=== PATIENT | female | born 1945 | race Caucasian/White ===

== ENCOUNTER → 2017-04-01 | Outpatient (CLI) | payer BC | LOC: FIMAGING 07:27 | PROVIDERS: ATTEND Radiology Diagnostic Radiology | DX: I83.893 Varicose veins of bilateral lower extremities with other complications (principal) ==

== ENCOUNTER → 2017-04-21 | Day surgery (SDC) | payer BC ==
[~2017-04-21] MED LIST: SODIUM TETRADECYL SULFATE 3% 2 ML VIAL IV ONE
== END | disposition home or self-care (01) ==
LOC: FIMAGING 13:17
PROVIDERS: ATTEND Radiology Diagnostic Radiology
PROC: 3E033TZ Introduction of Destructive Agent into Peripheral Vein, Percutaneous Approach (ICD-10-PCS; principal; 2017-04-21)
DX: I83.93 Asymptomatic varicose veins of bilateral lower extremities (principal)